=== PATIENT | female | born 1940 | race Caucasian/White ===

== ENCOUNTER 2024-03-18 20:33 | Emergency (ER) | payer MEDICARE, SELFPAY ==
--- NOTE | ~2024-03-18 | XR_ITS ---
EXAMINATION: XR CALCANEUS, LEFT CLINICAL INFORMATION: Spur/pain COMPARISON: None available. TECHNIQUE: Lateral and axial views of the left calcaneus were obtained. FINDINGS: No calcaneal spurring or fracture is seen. On the AP view of the calcaneus, there is a question of a possible fracture of the fourth metatarsal. If the patient has foot pain, recommend full foot series. XR/XR calcaneus LT min 2V IMPRESSION: 1. No calcaneal spurring or fracture. 2. Question of fourth metatarsal fracture. If the patient has foot pain, recommend full foot series. Electronically signed by: Luc Mckeon MD 03/18/2024 11:33 PM EDT RP
[2024-03-18 20:40] VITALS: BP 180/80; BP 180/83; PULSE 70; PULSE 74; RESP 16; TEMP 36.6; O2SAT 95; O2SAT 97; BMI 24.2
[2024-03-18 20:42] VITALS: BP 180/83; PULSE 73; RESP 17; TEMP 36.6; O2SAT 95
[2024-03-18 20:55] VITALS: BP 161/69; PULSE 68; RESP 16; O2SAT 95
--- NOTE | 2024-03-18 21:25 | ED_ITS ---
HPI - Extremity Problem General Chief complaint: Extremity Problem Stated complaint: L ANKLE SWELLING PER EMS Time Seen by Provider: 03/18/24 21:24 Source: patient Mode of arrival: ambulatory Limitations: no limitations History of Present Illness ED Provider: kayden AGUILERA Narrative: Patient 83 years old with history of hypertension plantar fasciitis comes here for pain in the left plantar fascia for last 4 days along with slight ankle swelling in the no shortness a breath no calf tenderness patient is on amlodipine Related Data Allergies Allergy/AdvReac Type Severity Reaction Status Date / Time No Known Allergies Allergy Verified 03/18/24 20:42 Review of Systems Review of Systems: Yes all other systems are reviewed and are negative PMFSH Social History Social History Smoked in Last 30 Days: No Use of substances other than those prescribed or required for medical reasons: No Advance Directives: Yes Advance Directives Information Provided: No Advance Directives on File: No Do you have a plan to hurt others: No Plan Physical Exam Vital Signs: Vital Signs: Last Vital Signs Temp 98.7 F 03/18/24 23:00 Pulse 64 03/18/24 23:00 Resp 16 03/18/24 23:00 BP 151/66 H 03/18/24 23:00 Pulse Ox 97 03/18/24 23:00 O2 Del Method Room Air 03/18/24 23:00 BMI result Body Mass Index 24.2 Appearance: Alert. Oriented X3. No acute distress. ENT: Pharynx normal. Oral Mucosa moist Neck: Normal inspection. Neck supple. CVS: Normal heart rate and rhythm. Pulses normal. Respiratory: No respiratory distress. Equal air entry bilateral, no wheezing/rales/rhonchi Abdomen: Soft and nontender. Bowel sounds are present, Skin: Skin warm and dry. Normal skin color. Normal skin turgor. Extremities: No lower extremity edema. No calf tenderness tender at the plantar fascia insertion of the left foot no significant ankle swelling Neuro: Oriented X 3. Medications Administered Discontinued Medications Generic Name Dose Route Start Last Admin Trade Name Freq PRN Reason Stop Dose Admin Lidocaine HCl 5 ml 03/18/24 21:57 03/18/24 22:41 Lidocaine Hcl 2 % Mpf 5 Ml Vial INFILTRATI 03/18/24 21:58 5 ml ONCE ONE Administration Triamcinolone Acetonide 10 mg 03/18/24 21:57 03/18/24 22:41 Triamcinolone Acetonide 40 Mg/Ml Vial INTRAARTIC 03/18/24 21:58 10 mg ONCE ONE Administration Procedures Procedure Narrative Procedure Narrative: Triamcinolone injection right plantar fascia 10 mg of Kenalog with 2% of lidocaine was injected at the base of tender plantar fascia of the right foot patient's immediately felt much better ambulatory in steady gait Discharge Plan Discharge Clinical Impression: Plantar fasciitis of left foot Patient Disposition: Home, Self-Care Instructions: Plantar Fasciitis (ED), Plantar Fasciitis Exercises (ED) Additional Instructions: Local care as advised Cortisone injection was given at the painful area you will do not have much pain Take ibuprofen for inflammation Use ice cold water bottle for exercises and may use foot strapping as advised Interventions: ED Discharge Assessment Last Done: 03/18/24 23:00 Discharge Date/Time: 03/18/24 23:01 Print Language: Kinyarwanda
[2024-03-18] MEDS: Lidocaine HCl 2 % MPF 5 ML VIAL INFILTRATI (22:41)
[2024-03-18] MEDS: Triamcinolone Acetonide 40 MG/ML VIAL 10 MG INTRAARTIC (22:41)
[2024-03-18 22:59] VITALS: BP 151/66; PULSE 64; RESP 16; TEMP 36.6; O2SAT 97
[2024-03-18 23:00] VITALS: BP 151/66; PULSE 64; RESP 16; TEMP 37.1; O2SAT 97
== END 2024-03-18 23:01 | disposition home or self-care (01) ==
PROVIDERS: Emergency Provider Internal Medicine; PCP Family Medicine
DX: M72.2 Plantar fascial fibromatosis (principal); R60.0 Localized edema
CPT/HCPCS: 73650; 96372; 99284; J2003; J3301